=== PATIENT | female | born 1945 | race Caucasian/White ===

== ENCOUNTER → 2019-04-11 10:37 | Outpatient (CLI) | payer MEDICARE, BC | END | disposition home or self-care (01) | LOC: D.NM 10:37 | PROVIDERS: ATTEND Legal Medicine | DX: C7A.092 Malignant carcinoid tumor of the stomach (principal) ==

== ENCOUNTER → 2019-10-28 16:41 | Outpatient (CLI) | payer MEDICARE, BC ==
[2019-10-28 17:13] LABS: BASOPHILS 0.4 % (0-2); EOSINOPHILS 1.9 % (0-7); HEMATOCRIT 40.8 % (36.0-48.0); HEMOGLOBIN 12.8 g/dL (12-16); IMMATURE GRANULOCYTES 0.2 % (0-5); LYMPHOCYTES 44.5 % (15-50); MCH 28.7 pg (26.0-34.0); MCHC 31.4 g/dL (31.0-37.0); MCV 91.5 fL (80.0-100.0); MEAN PLATELET VOLUME 9.7 fL (7.4-10.4); MONOCYTES 8.8 % (2-11); NEUTROPHILS 44.2 % (40-80); PLATELET COUNT 318 10x3/uL (130-400); RBC 4.46 10x6/uL (4.00-5.40); RDW 13.7 % (11.5-14.5); WBC 9.4 10x3/uL (4.8-10.8)
== END | disposition home or self-care (01) ==
LOC: D.LABREF 16:41
PROVIDERS: ATTEND Legal Medicine
DX: C7A.092 Malignant carcinoid tumor of the stomach (principal)